=== PATIENT | female | born 1965 | race Caucasian/White ===

== ENCOUNTER → 2020-07-24 | Outpatient (CLI) | payer BC ==
[~2020-07-24] MED LIST: HYDROCHLOROTHIA25 MG PO; LISINOPRIL-HCT1 EAC2 PO; LISINOPRIL20 MG PO; METFORMIN ER G500 MG PO; NEXIUM40 MG PO
== END ==
LOC: LAB 12:53
DX: E11.9 Type 2 diabetes mellitus without complications (principal)
CPT/HCPCS: 36415; 85049

== ENCOUNTER → 2021-06-02 | Day surgery (SDC) | payer BC | END | disposition home or self-care (01) | LOC: OR 06:54 | DX: K21.00 Gastro-esophageal reflux disease with esophagitis, without bleeding (principal); Z12.11 Encounter for screening for malignant neoplasm of colon; K31.9 Disease of stomach and duodenum, unspecified; K25.9 Gastric ulcer, unspecified as acute or chronic, without hemorrhage or perforation; K31.7 Polyp of stomach and duodenum; Z86.010 Personal history of colon polyps; Z80.0 Family history of malignant neoplasm of digestive organs; Z20.822 Contact with and (suspected) exposure to COVID-19; I10 Essential (primary) hypertension; E66.9 Obesity, unspecified; K57.30 Diverticulosis of large intestine without perforation or abscess without bleeding; K64.0 First degree hemorrhoids; K29.60 Other gastritis without bleeding | CPT/HCPCS: 43239; G0105; 82962; J2001; J2704; J7040 ==